=== PATIENT | male | born 1985 | race Caucasian/White ===

== ENCOUNTER 2020-12-25 19:43 | Emergency (ER) | payer BC, SELFPAY ==
[2020-12-25 19:44] VITALS: BP 124/88; PULSE 84; RESP 17; TEMP 36.7; O2SAT 99; BMI 26.2
[2020-12-25 21:00] VITALS: BP 00/00; PULSE 0; RESP 0; TEMP -17.7; TEMP 0
== END 2020-12-25 21:00 | disposition left against medical advice (07) ==
LOC: ER 21:19
PROVIDERS: Emergency Provider Emergency Medicine; PCP Family Medicine
DX: Z53.21 Procedure and treatment not carried out due to patient leaving prior to being seen by health care provider (principal)
CPT/HCPCS: 99211

== ENCOUNTER 2021-05-04 01:19 | Emergency (ER) | payer BC, SELFPAY ==
[2021-05-04 01:21] VITALS: BP 145/95; PULSE 77; RESP 16; TEMP 36.6; O2SAT 97; BMI 26.5
--- NOTE | 2021-05-04 01:43 | CT_ITS ---
PROCEDURE INFORMATION: Exam: CT Abdomen And Pelvis Without Contrast Exam date and time: 05/04/2021 1:43 AM Age: 35 years old Clinical indication: Abdominal pain; Additional info: Llq pain TECHNIQUE: Imaging protocol: Computed tomography of the abdomen and pelvis without contrast. Radiation optimization: All CT scans at this facility use at least one of these dose optimization techniques: automated exposure control; mA and/or kV adjustment per patient size (includes targeted exams where dose is matched to clinical indication); or iterative reconstruction. COMPARISON: No relevant prior studies available. FINDINGS: Lungs: There are clusters of tree-in-bud nodules in the anteromedial right lower lobe and lateral left lower lobe, compatible with an infectious or inflammatory process. Diaphragm: Small hiatal hernia. Liver: Mild to moderate diffuse hepatic steatosis. Gallbladder and bile ducts: No wall thickening. No calcified stones. No biliary dilation. Pancreas: Unremarkable noncontrast appearance. Spleen: The spleen is mildly enlarged measuring 14.5 cm in AP dimension. There are a few punctate calcified granulomas in the spleen. Adrenal glands: Normal. No mass. Kidneys and ureters: Punctate calculus at the left ureterovesical junction. There is minimal upstream left ureterectasis and pelvocaliectasis. There is subtle asymmetric fat stranding around the left ureter and left renal collecting system. There is a 2 mm nonobstructing right lower pole caliceal calculus. No right hydronephrosis. Stomach and bowel: No obstruction. No abnormal bowel wall thickening. Appendix: Normal. Intraperitoneal space: No pneumoperitoneum. No ascites. Vasculature: Unremarkable. No abdominal aortic aneurysm. Lymph nodes: No enlarged lymph nodes. Urinary bladder: Decompressed, limiting evaluation. Reproductive: Unremarkable as visualized. Bones/joints: Unremarkable. No acute fracture. Soft tissues: Small fat containing right inguinal hernia. IMPRESSION: 1. Punctate calculus at the left ureterovesical junction with minimal upstream hydroureteronephrosis. 2. Nonobstructing 2 mm right lower pole renal calculus. 3. Bilateral lower lobe clusters of tree-in-bud nodules compatible with an infectious or inflammatory process.
[2021-05-04 01:49] LABS: Microscopic, Urine URINE MICROSCOPIC (MICROSCOPIC)
[2021-05-04 01:51] LABS: Appearance,Urine CLEAR (Clear); Bilirubin,Urine Negative (Negative); Blood, Urine 3+ (Negative); Color,Urine YELLOW (Yellow); Glucose,Urine (UA) Negative (Negative); Ketones,Urine Negative (Negative); Leukocyte Esterase,Urine Negative (Negative); Nitrate,Urine Negative (Negative); PH,Urine 5.5 (5.0-8.5); Protein,Urine Negative (Negative); Specific Gravity, Urine >= 1.030 (1.005-1.030); Urobilinogen,Urine 0.2 EU/dl (0.2)
[2021-05-04 02:13] VITALS: BP 115/81; PULSE 74; O2SAT 97
[2021-05-04 02:25] LABS: Basophils # 0.1 K/mm3 (0-0.2); Basophils % 2.1 % (0.1-2.0); Eosinophils # 0.1 K/mm3 (0.0-0.4); Eosinophils % 2.3 % (0.1-12.0); Hematocrit 50.4 % (42.0-52.0); Hemoglobin 16.6 g/dL (14.1-18.0); Lymphocytes % 17.6 % (10-50); Mean Corpuscular Hemoglobin 28.9 pg (27.0-31.2); Mean Corpuscular Volume 87.8 fl (80-94); Mean Platelet Volume 8.9 fl (7.4-10.4); Monocytes # 0.6 K/mm3 (0.1-1.0); Monocytes % 10.5 % (1.7-9.3); Neutrophils # 3.7 K/mm3 (1.8-7.8); Neutrophils % 67.4 % (37.0-80.0); Platelet Count 162 K/mm3 (142-424); Red Blood Count 5.75 M/mm3 (4.60-6.20); Red Cell Distribution Width 13.8 % (11.5-17.5); White Blood Count 5.5 K/mm3 (4.8-10.8)
[2021-05-04 02:25] LABS: Squamous Epithelial Cell,Urine Occasional #/hpf (0-5); WBC,Urine Occasional #/hpf (0-3)
[2021-05-04 02:27] LABS: Chloride 104 mmol/L (98-107); Potassium 4.3 mmoL/L (3.5-5.1); Sodium 140 mmol/L (136-145)
[2021-05-04 02:29] LABS: Blood Urea Nitrogen 16 mg/dl (9-20); Creatinine Clearance Estimated 110 mL/min (50-200); Estimated Glomerular Filt Rate 76 ml/min (>60); GFR (African American) 92 ML/MIN (>60)
[2021-05-04 02:30] VITALS: BP 121/78; PULSE 77; O2SAT 98
[2021-05-04 02:30] LABS: Alanine Aminotransferase 63 U/L (12-78); Albumin Level 4.3 g/dl (3.5-5.0); Albumin/Globulin Ratio 1.4 (1.1-1.8); Alkaline Phosphatase 77 U/L (38-126); Anion Gap 11.3 mEq/L (5-15); Aspartate Amino Transferase 45 U/L (17-59); Bilirubin,Total 0.8 mg/dl (0.2-1.3); Calcium 8.9 mg/dl (8.4-10.2); Carbon Dioxide 29 mmol/L (22.0-30.0); Glucose 115 mg/dl (74-100); Total Protein,Serum 7.3 g/dl (6.3-8.2)
[2021-05-04 02:35] LABS: C-Reactive Protein 26.4 mg/L (0-4)
[2021-05-04 03:00] VITALS: BP 112/74; PULSE 73; O2SAT 98
[2021-05-04 03:12] LABS: Procalcitonin 0.159 ng/mL (0.0-2.0)
[2021-05-04 03:20] LABS: Erythrocyte Sedimentation Rate 4 mm/hr (0-15)
--- NOTE | 2021-05-04 03:44 | [facility].EDNVD ---
ED Disposition Clinical Impression: Renal colic on left side Disposition: Home, Self-Care Condition on Discharge: Good Instructions: DI for Kidney Stones Additional Instructions: fluids and use meds as needed and see pcp and urology Prescriptions: Tamsulosin HCl [Flomax 0.4mg capsule] 0.4 mg PO HS #10 cap Transmission Status: Pending to [id number] Referrals: Jones Peñaloza MD [Primary Care Provider] - Rui Chung MD [Staff Physician] - - Critical Care Critical Care Time: No Attestation: On 05/04/21, the high probability of a clinically significant, sudden or life threatening deterioration of the following system(s) required my full and direct attention, intervention and personal management. The time I documented below is in addition to time spent performing reported procedures but includes the following listed in this critical care notation. Medical Decision Making - Medical Records Medical records reviewed: Yes: I reviewed the patient's medical records. - Johnathon Inquiry Pt receiving controlled substance: No Vital Signs: 05/04/21 01:21 Temperature 97.8 F Temperature Source Oral Pulse Rate [Right Radial] 77 Respiratory Rate 16 Blood Pressure [Right Arm] 145/95 H Blood Pressure Mean [Right Arm] 111 Blood Pressure Source [Right Arm] Automatic Cuff Blood Pressure Position [Right Arm] Sitting 02 Sat by Pulse Oximetry 97 Oxygen Delivery Method Room Air - Lab Data Lab results reviewed: Yes: I reviewed the patient's lab results. Lab Results 05/04/21 01:32: Urine Color Yellow, Urine Appearance Clear, Urine pH 5.5, Ur Specific Grayson >= 1.030, Urine Protein Negative, Urine Glucose (UA) Negative, Urine Ketones Negative, Urine Blood 3+, Urine Nitrate Negative, Urine Bilirubin Negative, Urine Urobilinogen 0.2, Ur Leukocyte Esterase Negative, Urine RBC 5-10, Urine WBC Occasional, Ur Squamous Epith Cells Occasional, Urine Bacteria None 05/04/21 02:13: WBC 5.5, RBC 5.75, Hgb 16.6, Hct 50.4, MCV 87.8, MCH 28.9, MCHC 33.0, RDW 13.8, Plt Count 162, MPV 8.9, Neut % (Auto) 67.4, Lymph % (Auto) 17.6, [place] % (Auto) 10.5 H, Eos % (Auto) 2.3, Baso % (Auto) 2.1 H, Neut # (Auto) 3.7, Lymph # (Auto) 1.0, [place] # (Auto) 0.6, Eos # (Auto) 0.1, Baso # (Auto) 0.1, ESR 4 05/04/21 02:13: Sodium 140, Potassium 4.3, Chloride 104, Carbon Dioxide 29, Anion Gap 11.3, BUN 16, Creatinine 1.10, Estimated Creat Clear 110, Estimated GFR 76, Est GFR ( Amer) 92, Glucose 115 H, Calcium 8.9, Total Bilirubin 0.8, AST 45, ALT 63, Alkaline Phosphatase 77, C-Reactive Protein 26.4 H, Total Protein 7.3, Albumin 4.3, Globulin 3.0, Albumin/Globulin Ratio 1.4, Procalcitonin 0.159 Result diagrams: 05/04/21 02:13 05/04/21 02:13 Orders (Tests/Meds): ED MEDICATIONS Generic Name Dose Route Start Last Admin Trade Name Freq PRN Reason Stop Dose Admin Lactated Ringer's 1,000 mls @ 999 mls/hr 05/04/21 01:45 05/04/21 02:01 Lactated Ringer's 1000 Ml Bag IV 05/04/21 02:45 999 mls/hr .Q1H1M MARVA Administration Lactated Ringer's 1,000 mls @ 999 mls/hr 05/04/21 03:15 05/04/21 03:22 Lactated Ringer's 1000 Ml Bag IV 05/04/21 04:15 999 mls/hr .Q1H1M MARVA Administration Tamsulosin HCl 0.4 mg 05/04/21 21:00 05/04/21 03:20 Tamsulosin 0.4mg Capsule PO 06/03/21 20:59 0.4 mg HS MARVA Administration Discontinued Medications Generic Name Dose Route Start Last Admin Trade Name Freq PRN Reason Stop Dose Admin Ketorolac Tromethamine 30 mg 05/04/21 01:45 05/04/21 02:01 Ketorolac 30mg/Ml Vial IV 05/04/21 01:46 30 mg ONCE ONE Administration Ondansetron HCl 4 mg 05/04/21 01:45 05/04/21 02:01 Ondansetron 4mg/2ml Vial IV 05/04/21 01:46 4 mg ONCE ONE Administration - CT Data CT Scan: Abdomen, Pelvis Time Received: 03:[address] Reviewed: Yes: I have viewed the radiologist's interpretation Preliminary Findings: Abnormal (see report ) Medical Decision Narrative: has small stone o
[2021-05-04 04:11] VITALS: BP 109/67; PULSE 74; RESP 16; TEMP 36.7; O2SAT 99
== END 2021-05-04 04:11 | disposition home or self-care (01) ==
PROVIDERS: Emergency Provider Emergency Medicine; PCP Family Medicine
DX: N23 Unspecified renal colic (principal)
CPT/HCPCS: 74176; 80053; 81001; 84145; 85025; 85651; 86140; 96365; 96366; 96375; 99283; J2405

== ENCOUNTER → 2021-05-18 12:05 | Outpatient (CLI) | payer BC, SELFPAY | PROVIDERS: PCP Family Medicine; Visit Provider Family Medicine | DX: G47.33 Obstructive sleep apnea (adult) (pediatric) (principal) | CPT/HCPCS: G0399 ==